=== PATIENT | male | born 1950 ===

== ENCOUNTER 2019-07-05 13:08 | Emergency (ER) | payer OTHER ==
[~2019-07-05] VITALS: Ht 180.3 cm; Wt 73.5 kg
[2019-07-05] MEDS ORDERED: [UNRECOGNIZED DRUG - OTHER] (13:33)
[2019-07-05] MEDS ORDERED: EFFER-K 10 MEQ10 MEQ (13:34)
== END 2019-07-05 15:45 | disposition home or self-care (01) ==
LOC: ER 13:08
DX: B34.9 Viral infection, unspecified (principal)